=== PATIENT | female | born 1940 | race Caucasian/White ===

== ENCOUNTER 2021-04-29 23:31 | Emergency (ER) | payer MEDICARE ==
[~2021-04-29] VITALS: Ht 160 cm; Wt 72.6 kg
--- NOTE | 2021-04-29 23:35 | NUR ---
Dr. Contreras at bedside for MSE.
[2021-04-29] MEDS ORDERED: ONDANSETRON 4 MG/2 ML VIAL IV ONE (23:45)
--- NOTE | 2021-04-30 00:02 | NUR ---
Xray at bedside.
[2021-04-30 00:04] LABS: HEMATOCRIT 37.7 % (31.2-41.9); MEAN CORPUSCULAR HEMOGLOBIN 28.9 uug (24.7-32.8); PLATELET COUNT (AUTO) 377 K/uL (179-408)
[2021-04-30] MEDS ORDERED: ONDANSETRON 4 MG/2 ML VIAL ONE (00:18)
[2021-04-30 00:19] LABS: CREATININE 0.8 mg/dL (0.6-1.3); POTASSIUM 3.2 mmol/L (3.5-5.1)
[2021-04-30 00:31] LABS: BILIRUBIN,DIRECT 0.1 mg/dL (0.0-0.2); BILIRUBIN,TOTAL 0.3 mg/dL (0.2-1.0); TOTAL PROTEIN, SERUM 7.3 g/dL (6.4-8.2)
[2021-04-30] MEDS ORDERED: POTASSIUM BICARBONATE/CIT AC 25 MEQ TABLET.EFF PO ONE (00:45)
[2021-04-30 01:00] LABS: *BILIRUBIN,URIN NEGATIVE (NEGATIVE); *BLOOD, URINE 1+ (NEGATIVE); *CLARITY,URINE CLEAR (CLEAR); *COLOR,URINE LIGHT YELLOW (YELLOW); *KETONES,URINE NEGATIVE (NEGATIVE); *UROBILINOGEN,URINE 0.2 E.U./dl (NORMAL); LEUKOCYTE ESTERASE ,URINE 1+ (NEGATIVE); NITRITE, URINE NEGATIVE (NEGATIVE); PH,URINE 6.5 (5.0-8.0); UGLUCOSE NEGATIVE (NEGATIVE)
[2021-04-30] MEDS ORDERED: PROCHLORPERAZINE EDISYLATE 10 MG/2 ML VIAL IV ONE (01:30)
[2021-04-30] MEDS ORDERED: PROCHLORPERAZINE EDISYLATE 10 MG/2 ML VIAL ONE (01:39)
[2021-04-30] MEDS ORDERED: POTASSIUM BICARBONATE/CIT AC 25 MEQ TABLET.EFF ONE (01:39)
[2021-04-30] MEDS ORDERED: MAGNESIUM SULFATE 1 GM/2 ML VIAL ONE (01:40)
[2021-04-30] MEDS: MAGNESIUM SULFATE/D5W 100 ML IV SCH ×3 (01:46→03:19)
[2021-04-30] MEDS ORDERED: CEFTRIAXONE 1 G in IV DEXTROSE 5% 50 ML IV ONE (04:00)
[2021-04-30] MEDS ORDERED: CEFTRIAXONE /D5W 50ML IVPB **ER PYXIS IV ONE (04:06)
[2021-04-30] MEDS ORDERED: PROC-11 PO (04:18)
[2021-04-30] MEDS ORDERED: CEPH500C2 PO (04:18)
--- NOTE | 2021-04-30 04:31 | NUR ---
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
--- NOTE | 2021-04-30 05:01 | NUR ---
Patient discharged to home in stable condition. Written and verbal after care instructions given. Patient verbalizes understanding of instructions. Stressed follow up or return to ER for worsening s/s. Patient out of ER via wheelchair, VSS, no acute signs of distress, all belongings taken, IV site discontinued, provided with copies of labs, assisted patient in transfer from chair to car, no falls noted, patient to be driven home by son via private vehicle.
[2021-04-30 05:03] VITALS: BP 138/66
[2021-04-30 15:17] LABS: BACTERIA,URINE MANY /HPF (NONE SEEN); SQUAMOUS EPITHELIAL CELL,UR FEW /HPF (NONE SEEN)
== END 2021-04-30 05:04 | disposition home or self-care (01) ==
LOC: ER 23:33
DX: N39.0 Urinary tract infection, site not specified (principal); E83.42 Hypomagnesemia; E87.6 Hypokalemia; J44.9 Chronic obstructive pulmonary disease, unspecified; R11.0 Nausea; R94.31 Abnormal electrocardiogram [ECG] [EKG]; Z20.822 Contact with and (suspected) exposure to COVID-19; Z95.5 Presence of coronary angioplasty implant and graft; Z87.891 Personal history of nicotine dependence
CPT/HCPCS: 36415; 70030-TC; 71045; 83690; 83735; 85025; 85730; 87040; 87077; 87086; 93005; A4663; J0696; J0780; J2405; J3475; J7060